=== PATIENT | male | born 1965 | race Caucasian/White ===

== ENCOUNTER 2019-11-28 03:15 | Inpatient (IN) | payer MEDICAID, SELFPAY ==
[~2019-11-28] VITALS: Ht 188 cm; Wt 72.6 kg
[~2019-11-28 03:15] MED LIST: PHEN100C3 PO
[2019-11-28 03:20] VITALS: BP 184/124
--- NOTE | 2019-11-28 03:23 | NUR ---
PT TAKEN TO BED 11 VIA WHEELCHAIR.
[2019-11-28] MEDS ORDERED: ENALAPRILAT 2.5 MG/2 ML VIAL IVP ONE (03:25)
[2019-11-28] MEDS ORDERED: ASPIRIN 325 MG TAB PO ONE (03:25)
[2019-11-28] MEDS ORDERED: NITROGLYCERIN 2% 1 GM PKT TP ONE (03:25)
[2019-11-28] MEDS ORDERED: MORPHINE SULFATE 4 MG/ML SYR IVP ONE (03:25)
--- NOTE | 2019-11-28 04:45 | NUR ---
PT IS SLEEPING VSS, R/R EQUAL, AND UNLABORED. MADE AWARE.
--- NOTE | 2019-11-28 05:50 | NUR ---
54 Y/O MALE PRESENTS TO ER WITH C/O MIDSTERNAL CHEST PAIN 01/07. X 30 MIN AGO. PT ADMITTED TO USING "NICKEL OF HEROIN" BEFORE COMING INTO ER. IV DRUG USER. PT ALSO STATES HE IS USING METHADONE WELL. PT IS HOMELESS. R/R EQUAL, MILDLY LABORED, AFEBRILE. CAP REFILL < 3 SEC. SIDE RAIL X1, BED IN LOW POSITION, WILL CONTINUE TO MONITOR. PMH: SEIZURES NKDA
--- NOTE | 2019-11-28 05:52 | NUR ---
ER NURSES HAVE ATTEMPTED TO OBTAIN A PATENT IV FROM BILATERAL ARMS. PT REFUSES TO ALLOW NURSES TO DRAW FROM ADDITIONAL SITES ON BODY. PT IS REQUESTING SMALLEST GAUGE NEEDLE, AND REQUESTING FOR IV TO BE PUT INTO VEIN THAT WAS USED PRIOR TO PRESENTING TO ER FOR HEROIN DRUG USE. OLYA MADE AWARE.
--- NOTE | 2019-11-28 05:52 | NUR ---
PT ADMINISTERED ASPIRIN 325MG PO, AND NITRO 1G MIDSTERNAL CHEST.
--- NOTE | 2019-11-28 05:56 | NUR ---
PT WILL BE ADMITTED INTO [facility], OLYA CHAHAL WILL ORDER PICC LINE PLACEMENT
[2019-11-28] MEDS ORDERED: NACL 0.9% 1,000 ML IV SCH (06:04)
[2019-11-28] MEDS ORDERED: ACETAMINOPHEN 325 MG TAB PO PRN (06:05)
[2019-11-28] MEDS ORDERED: ONDANSETRON 4 MG/2 ML VIAL IM/IVP PRN (06:05)
[2019-11-28] MEDS ORDERED: DOCUSATE SODIUM 100 MG GELCAP PO PRN (06:05)
[2019-11-28] MEDS ORDERED: lisinopriL 20 MG TAB PO ONE (06:50)
--- NOTE | 2019-11-28 07:10 | NUR ---
OBTAINED REPORT FROM MERI LINDSEY FOR CONTINUITY OF CARE
--- NOTE | 2019-11-28 07:28 | NUR ---
PT RESTING IN BED, SIDE RAIL X1
[2019-11-28 08:03] LABS: APPEARANCE,URINE CLOUDY (CLEAR); BILIRUBIN,URINE NEGATIVE (NEGATIVE); BLOOD, URINE 3+ (NEGATIVE); COLOR,URINE AMBER (YELLOW); LEUKOCYTE ESTERASE ,URINE TRACE (NEGATIVE); NITRITE, URINE POSITIVE (NEGATIVE); UGLUCOSE NEGATIVE (NEGATIVE)
[2019-11-28 08:35] LABS: RBC,URINE 50-80 /HPF (0-5); WBC,URINE TOO MANY TO COUNT /HPF (0-5)
[2019-11-28 09:11] LABS: BASOPHILS # (AUTO) 0.2 K/uL (0.00-0.22); BASOPHILS % (AUTO) 0.9 % (0.0-2.0); EOSINOPHILS # (AUTO) 0.3 K/uL (0-0.4); EOSINOPHILS % (AUTO) 1.4 % (0.0-4.0); HEMATOCRIT 41.3 % (36-52); LYMPHOCYTES # (AUTO) 1.8 K/uL (2.0-11.5); LYMPHOCYTES % (AUTO) 9.3 % (20.5-51.1); MEAN CORPUSCULAR HEMOGLOBIN 28 pg (27-31); MEAN CORPUSCULAR HGB CONC 31 g/dL (33-37); MEAN CORPUSCULAR VOLUME 87.8 fL (80-94); MONOCYTES # (AUTO) 2.6 K/uL (0.8-1.0); MONOCYTES % (AUTO) 13.6 % (1.7-9.3); NEUTROPHILS # (AUTO) 14.3 K/uL (1.8-7.7); NEUTROPHILS % (AUTO) 74.8 % (42.2-75.2); PLATELET COUNT (AUTO) 463 K/uL (140-450); RED CELL DISTRIBUTION WIDTH 14.8 % (11.6-13.7); WHITE BLOOD COUNT (AUTO) 19.1 K/uL (4.8-10.8)
--- NOTE | 2019-11-28 09:17 | NUR ---
PT RESTING IN BED, SIDE RAIL X1
[2019-11-28 09:27] LABS: BARBITURATE, URINE NEGATIVE ng/ml (NEG <=200); BENZODIAZEPINE, URINE NEGATIVE ng/mL (NEG <=200); CANNABINOID, URINE NEGATIVE ng/mL (NEG <=50); COCAINE, URINE NEGATIVE ng/mL (NEG <=300); OPIATE, URINE POSITIVE ng/mL (NEG <=2000); PHENCYCLIDINE SCREEN,URINE NEGATIVE ng/mL (NEG <=25)
[2019-11-28 10:15] VITALS: BP 137/75
--- NOTE | 2019-11-28 10:15 | NUR ---
RECEIVED PATIENT FROM ER NURSEASHLYN, FOR CONTINUITY OF CARE. PATIENT IS AWAKE AND IN BED, TOO WEAK TO AMBULATE TOWARDS BED. AAOX4, ON ROOM AIR WITH SAO2 AT 98%. PATIENT COMPLAINS OF CHEST PAIN 6/10, RADIATING TOWARDS THE BACK. WILL MEDICATE PER ORDERS. IV ON THE LAC 20G SL. RESPIRATIONS EVEN AND UNLABORED. DROPLET ISOLATIONS IN PLACE FOR R/O COVID. SAFETY PRECAUTION AND SEIZURE PRECAUTIONS IN PLACE. POC DISCUSSED AND PATIENT VERBALIZES UNDERSTANDING. CALL LIGHT WITHIN REACH. WILL CONTINUE TO MONITOR.
--- NOTE | 2019-11-28 10:20 | NUR ---
Patient will be admitted to care of [facility]. Admited to TELE. Will go to room 110B. Belongings list completed. Report to SAMMI LINDSEY.
[2019-11-28 10:26] LABS: ALBUMIN 2.6 g/dL (3.4-5.0); ANION GAP 11.4 (8-16); CARBON DIOXIDE 26.4 mmol/L (21-32); CREATININE 0.9 mg/dL (0.6-1.3); POTASSIUM 3.8 mmol/L (3.5-5.1); TOTAL BILIRUBIN 0.4 mg/dL (0.0-1.0)
--- NOTE | 2019-11-28 10:28 | NUR ---
PATIENT HAS BEEN SCREENED AND CATEGORIZED LOW NUTRITION RISK. PATIENT WILL BE SEEN WITHIN 7 DAYS OF ADMISSION. 12/05/[address]
[2019-11-28] MEDS: DEXT 5% /NACL 0.9% 1,000 ML IV SCH ×2 (10:40→22:44)
[2019-11-28] MEDS: HYDROcodone/APAP 7.5/325 MG 1 TAB PO PRN ×3 (10:49→23:25)
--- NOTE | 2019-11-28 10:49 | NUR ---
NORCO PRN GIVEN FOR CHEST PAIN 11/07. NO DISTRESS NOTED. PATIENT REFUSED SKIN CHECK, EXPLAINED RISK AND BENEFITS FOR PATIENT. PATIENT UNDERSTANDS BUT STILL REFUSES STATING THAT THEY SHOULD NOT TOUCH HIS BODY. ASSESSMENT COMPLETE. WILL CONTINUE TO MONITOR.
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
--- NOTE | 2019-11-28 11:46 | NUR ---
ROOFER NOTE: LESTER CONTACTED ROSALIA CARTY TO SPEAK TO LESTER. PER CARLOZ, PATIENT REFUSED TO SPEAK TO LESTER. SW WILL FOLLOW UP.
--- NOTE | 2019-11-28 12:10 | NUR ---
PATIENT IS ASLEEP AND IN BED, V/S TAKEN AND IS WNL. WILL CONTINUE TO MONITOR.
[2019-11-28] MEDS ORDERED: LORazepam 2 MG/ML VIAL IM/IVP PRN (13:50)
[2019-11-28] MEDS ORDERED: NITROGLYCERIN 0.4 MG TAB SL PRN (13:55)
[2019-11-28] MEDS ORDERED: hydrALAZINE 20 MG/ML VIAL IVP PRN (14:10)
[2019-11-28] MEDS ORDERED: VANCOMYCIN PER PHARMACY MC PRN (14:15)
[2019-11-28 16:00] VITALS: BP 131/80
--- NOTE | 2019-11-28 17:20 | NUR ---
PICC LINE NURSE BY THE BEDSIDE, PLACED A MIDLINE DOUBLE LUMEN ON THE RIGHT UPPER ARM. D5NS IVF RUNNING AT 60ML/HR. WILL START ROCEPHIN ABX. WILL CONTINUE TO MONITOR.
[2019-11-28] MEDS ORDERED: PIPERACILLIN/TAZOBACTAM 3.375 GM in DEXTROSE 5% 50 ML IV SCH (18:00)
--- NOTE | 2019-11-28 18:00 | NUR ---
PATIENT COMPLAINS OF CHEST PAIN 11/07. WILL MEDICATE.
--- NOTE | 2019-11-28 18:15 | NUR ---
RECEIVED PATIENT FROM ER NURSEASHLYN, FOR CONTINUITY OF CARE. PATIENT IN BED, AWAKE, HARD OF HEARING, AAOX4. NO SIGNS OF DISTRESS NOTED. ON ROOM AIR. SAFETY PRECAUTIONS IN PLACE, DROPLET ISOLATION FOR R/O COVID-19. PLAN OF CARE DISCUSSED. CALL LIGHT WITHIN REACH. WILL CONTINUE TO MONITOR. Addendum: 11/28/19 at 1922 by Chante Recio RN WRONG PATIENT
--- NOTE | 2019-11-28 19:10 | NUR ---
ENDORSED TO ANCILLARY SERVICES MANAGER THERAPY RNJOSEPH, FOR CONTINUITY OF CARE.
--- NOTE | 2019-11-28 19:11 | NUR ---
RECEIVED BEDSIDE PATIENT FROM DAY SHIFT NURSESAMMI FOR CONTINUITY OF CARE. PATIENT IS AWAKE AND IN BED, TOO WEAK TO AMBULATE TOWARDS BED. AAOX4, BREATHING EVEN AND UNLABORED ON ROOM AIR. MIDLINE ON ROXANA, PATENT, INTACT AND ASYMPTOMATIC. DROPLET ISOLATIONS IN PLACE FOR R/O COVID. SAFETY PRECAUTION AND SEIZURE PRECAUTIONS IN PLACE. POC DISCUSSED AND PATIENT VERBALIZES UNDERSTANDING. CALL LIGHT WITHIN REACH. WILL CONTINUE TO MONITOR.
[2019-11-28] MEDS: VANCOMYCIN 1,000 MG in DEXTROSE 5% 250 ML IV SCH (19:14)
--- NOTE | 2019-11-28 19:20 | NUR ---
ENDORSED TO PIPEMAN RN, REGAN, FOR CONTINUITY OF CARE.
[2019-11-28 19:41] LABS: FREE T4 (FREE THYROXINE) 1.46 ng/dL (0.76-1.46); MAGNESIUM 1.9 mg/dL (1.8-2.4); PHOSPHORUS 3.2 mg/dL (2.5-4.9); THYROID STIMULATING HORMONE 0.93 uIU/mL (0.34-3.74)
[2019-11-28 19:53] LABS: PHENOBARBITAL < 1 ug/ml (15-40)
[2019-11-28 20:00] VITALS: BP 158/77
[2019-11-28] MEDS: METOPROLOL 25 MG TAB PO SCH (20:22)
--- NOTE | 2019-11-28 20:23 | NUR ---
GIVEN METOPROLOL AND HEPARIN MD ORDERED. PT TOLERATED WELL. Addendum: 11/29/19 at 0023 by Tala Pinzon RN GIVEN METOPROLOL. PATIENT REFUSED HEPARIN. EXPLAINED BENEFIT AND RISK 3X, PT STILL REFUSED AND STATED "I DO NOT WANT ANY NEEDLE TO MY BODY."
--- NOTE | 2019-11-28 21:30 | NUR ---
PT C/O CHEST PAIN, GIVEN NITROSTAT MD ORDERED. PT TOLERATED WELL.
--- NOTE | 2019-11-28 21:36 | NUR ---
REASSESSED CHEST PAIN, PT STATED "I AM OK NOW." WILL CONTINUE TO MONITOR.
[2019-11-28 22:20] LABS: CREATINE KINASE MB 0.6 ng/mL (0-3.6)
--- NOTE | 2019-11-28 23:25 | NUR ---
PT C/O 6 CHEST PAIN, GIVEN NORCO MD ORDERED. PT TOLERATED WELL.
[2019-11-29] VITALS: BP 146/95
--- NOTE | 2019-11-29 00:01 | NUR ---
VS WITHIN PT'S BASELINE. WILL CONTINUE TO MONITOR.
--- NOTE | 2019-11-29 02:35 | NUR ---
PT SLEEPING IN BED COMFORTABLY. NO ACUTE DISTRESS NOTED.
[2019-11-29] MEDS: VANCOMYCIN 1,000 MG in DEXTROSE 5% 250 ML IV SCH ×2 (03:24→15:00)
[2019-11-29 04:00] VITALS: BP 158/96
[2019-11-29] MEDS: HYDROcodone/APAP 7.5/325 MG 1 TAB PO PRN (05:37)
--- NOTE | 2019-11-29 05:37 | NUR ---
PT C/O CHEST PAIN 11/07, GIVEN NORCO MD ORDERED. PT TOLERATED WELL.
--- NOTE | 2019-11-29 07:01 | NUR ---
PT IN STABLE CONDITION. WILL ENDORSE PT TO DAY SHIFT NURSE FOR CONTINUOUS CARE.
--- NOTE | 2019-11-29 07:10 | NUR ---
RECEIVED REPORT FROM SECURITY OPERATIONS ENGINEER NURSE. PT IS IN BED. AOX4, NO C/O PAIN, NO SOB, RESPIRATIONS ARE EVEN AND UNLABORED. ON ROOM AIR. SKIM IS INTACT. WITH RIGHT UPPER ARM MIDLINE RUNNING NS AT 60CC/HR. SAFETY PRECAUTIONS IN PLACE. ISOLATION PRECAUTION OBSERVED. CALL LIGHT WITHIN REACH. WILL CONTINUE TO MONITOR.
[2019-11-29 07:14] LABS: BASOPHILS # (AUTO) 0.2 K/uL (0.00-0.22); BASOPHILS % (AUTO) 0.9 % (0.0-2.0); EOSINOPHILS % (AUTO) 0.1 % (0.0-4.0); HEMATOCRIT 40.6 % (36-52); HEMOGLOBIN 13.2 g/dL (12.0-18.0); LYMPHOCYTES # (AUTO) 1.6 K/uL (2.0-11.5); LYMPHOCYTES % (AUTO) 7.9 % (20.5-51.1); MEAN CORPUSCULAR HEMOGLOBIN 28 pg (27-31); MEAN CORPUSCULAR HGB CONC 33 g/dL (33-37); MEAN CORPUSCULAR VOLUME 84.8 fL (80-94); MONOCYTES # (AUTO) 1.3 K/uL (0.8-1.0); MONOCYTES % (AUTO) 6.4 % (1.7-9.3); NEUTROPHILS # (AUTO) 17.1 K/uL (1.8-7.7); NEUTROPHILS % (AUTO) 84.7 % (42.2-75.2); PLATELET COUNT (AUTO) 554 K/uL (140-450); RED BLOOD CELL COUNT(AUTO) 4.78 MIL/uL (4.20-6.10); RED CELL DISTRIBUTION WIDTH 13.9 % (11.6-13.7); WHITE BLOOD COUNT (AUTO) 20.2 K/uL (4.8-10.8)
[2019-11-29 07:41] LABS: ANION GAP 11.4 (8-16); CARBON DIOXIDE 28.1 mmol/L (21-32); CREATININE 0.8 mg/dL (0.6-1.3); POTASSIUM 3.5 mmol/L (3.5-5.1)
[2019-11-29 07:44] LABS: CHOL/HDL RATIO 2.3 (1-4.5)
[2019-11-29 08:00] VITALS: BP 134/93
--- NOTE | 2019-11-29 08:30 | NUR ---
WITH C/O CHEST PAIN NITRO GIVEN SL ORDERED. OTHER DUE MEDS GIVEN
--- NOTE | 2019-11-29 08:45 | NUR ---
NO FURTHER C/O CHEST PAIN
[2019-11-29] MEDS ORDERED: ATORVASTATIN 20 MG TAB PO SCH (09:00)
[2019-11-29] MEDS ORDERED: lisinopriL 5 MG TAB PO SCH (09:00)
[2019-11-29] MEDS: METOPROLOL 25 MG TAB PO SCH (09:48)
[2019-11-29] MEDS: ASPIRIN 81 MG TAB.CHEW PO SCH (09:48)
--- NOTE | 2019-11-29 11:15 | NUR ---
PT ASLEEP IN BED. NO C/O AT THIS TIME
--- NOTE | 2019-11-29 11:30 | NUR ---
COVID RESULT IS NEGATIVE. AWARE. DISCONTINUED ISOLATION
[2019-11-29 12:00] VITALS: BP 142/81
--- NOTE | 2019-11-29 13:00 | NUR ---
PT IN BED EATING LUNCH NO COMPLAINTS AT THIS TIME
[2019-11-29] MEDS ORDERED: CLONIDINE HYDROCHLORIDE 0.1 MG TAB PO PRN (15:50)
[2019-11-29 16:00] VITALS: BP 136/90
[2019-11-29] MEDS: HYDROcodone/APAP 10/325 MG 1 TAB TAB PO PRN ×2 (16:22→21:30)
[2019-11-29] MEDS: NACL 0.9% 1,000 ML IV SCH (16:22)
--- NOTE | 2019-11-29 16:41 | NUR ---
WITH C/O NAUSEA AND RESTLESSNESS. NORCO 10/325 GIVEN FOR WITHDRAWALS
--- NOTE | 2019-11-29 18:50 | NUR ---
PT IN STABLE CONDITION. WILL ENDORSE TO NEXT SHIFT.
--- NOTE | 2019-11-29 19:30 | NUR ---
RECEIVED AAOX4 , NID - O2 SAT WNL , ON RA . IV SITE INTACT AND PATENT . ON TELE MONITOR - SR . W/ HX OF S2 - ON S2 PRECAUTION . PER PT - BEARABLE PAIN - JUST MEDICATED SAFETY MEASURES IN PLACE - CALL LIGHT / URINAL WITHIN REACH . PLAN OF CARE DISCUSSED VERBALIZE FAIR UNDERSTANDING - NEEDS REINFORCEMENT . WILL CONT. TO MONITOR .
[2019-11-29 20:00] VITALS: BP 150/65
--- NOTE | 2019-11-29 21:22 | NUR ---
MADE ROUNDS , PT GRIMACING , IRRITABLE , HE SAID HE HAS PAIN IN DIFFERENT BODY PARTS - REQUESTING PAIN RELIEVER - WILL GIVE NARCO ORDERED . WILL CONT. TO MONITOR.
[2019-11-30] VITALS: BP 140/60
[2019-11-30] MEDS ORDERED: VANCOMYCIN 1,000 MG in DEXTROSE 5% 250 ML IV SCH ×2
--- NOTE | 2019-11-30 | NUR ---
REFUSED CAROLA MILLER - HE SAID - DON'T BOTHER ME -I'M SLEEPING - WILL INFORM MARY ANN ABOUT THE REFUSAL .
--- NOTE | 2019-11-30 01:40 | NUR ---
MADE ROUNDS . HE SAID HE CHANGED HIS MIND AND AGREE TO ADMINISTER THE ANTIBIOTIC ( VANCOCIN) WILL INFORM THE PHARMACY TO CHANGE THE SCHEDULE . Addendum: 11/30/19 at 0241 by Lazara Guevara RN THE PHARMACIST ON DUTY INFORMED THAT THE VANCO TIV GIVEN AT 0159 INSTEAD OF 0000 - SHE WILL REVISED THE SCHEDULE OF VANCO . Addendum: 11/30/19 at 0245 by Lazara Guevara RN THE PHARMACIST CHANGED THE SCHEDULE OF VANCO - SHE PUT THE 2AM - I DOCUMENTED IT NON ADMINISTERED BECAUSE ON THAT TIME THE VANCO /TIV IS ON GOING - IT ADMINISTERED AT 0159 -THE 2AM IS JUST THE DUPLICATE OF 0159 - WILL ENDORSE IT TO AM SHIFT
[2019-11-30] MEDS: VANCOMYCIN 1,000 MG in DEXTROSE 5% 250 ML IV SCH ×2 (02:00→10:52)
[2019-11-30 04:00] VITALS: BP 128/70
--- NOTE | 2019-11-30 04:00 | NUR ---
MADE ROUNDS , NO S/SX OF ACUTE DISTRESS NOTED AT THIS TIME - BP WNL . WILL CONT . TO MONITOR . O2 SAT WNL. ON TELE MONITOR - SR.
[2019-11-30] MEDS: NACL 0.9% 1,000 ML IV SCH (05:48)
--- NOTE | 2019-11-30 06:00 | NUR ---
C/O BACK PAIN - TELE MONITOR - SR - WILL MEDICATE ORDERED . WILL CONT. TO MONITOR . O2 SAT WNL .
[2019-11-30] MEDS: HYDROcodone/APAP 7.5/325 MG 1 TAB PO PRN (06:41)
--- NOTE | 2019-11-30 07:31 | NUR ---
ENDORSED TO AM SHIFT - PT - STABLE .
[2019-11-30 07:33] LABS: BASOPHILS # (AUTO) 0.1 K/uL (0.00-0.22); BASOPHILS % (AUTO) 0.5 % (0.0-2.0); EOSINOPHILS # (AUTO) 0.2 K/uL (0-0.4); EOSINOPHILS % (AUTO) 1.1 % (0.0-4.0); HEMATOCRIT 40.4 % (36-52); HEMOGLOBIN 13.2 g/dL (12.0-18.0); LYMPHOCYTES % (AUTO) 12.3 % (20.5-51.1); MEAN CORPUSCULAR HEMOGLOBIN 28 pg (27-31); MEAN CORPUSCULAR HGB CONC 33 g/dL (33-37); MEAN CORPUSCULAR VOLUME 84.7 fL (80-94); MONOCYTES # (AUTO) 1.1 K/uL (0.8-1.0); MONOCYTES % (AUTO) 6.8 % (1.7-9.3); NEUTROPHILS # (AUTO) 12.9 K/uL (1.8-7.7); NEUTROPHILS % (AUTO) 79.3 % (42.2-75.2); PLATELET COUNT (AUTO) 577 K/uL (140-450); RED BLOOD CELL COUNT(AUTO) 4.77 MIL/uL (4.20-6.10); RED CELL DISTRIBUTION WIDTH 14.1 % (11.6-13.7); WHITE BLOOD COUNT (AUTO) 16.2 K/uL (4.8-10.8)
[2019-11-30 07:50] LABS: ANION GAP 11.6 (8-16); CARBON DIOXIDE 28.8 mmol/L (21-32); CREATININE 0.9 mg/dL (0.6-1.3); POTASSIUM 3.4 mmol/L (3.5-5.1)
[2019-11-30 07:54] LABS: MAGNESIUM 1.9 mg/dL (1.8-2.4); PHOSPHORUS 2.7 mg/dL (2.5-4.9)
[2019-11-30 08:00] VITALS: BP 135/82
[2019-11-30] MEDS ORDERED: METHADONE 10 MG TAB PO SCH (09:00)
[2019-11-30] MEDS: ASPIRIN 81 MG TAB.CHEW PO SCH (09:10)
--- NOTE | 2019-11-30 09:17 | NUR ---
ADMINISTERED SCHEDULED MEDICATION, MEDICATION EDUCATION GIVEN, PT TOLERATED WELL, PT IS STABLE, CALL LIGHT WITHIN REACH.
--- NOTE | 2019-11-30 10:56 | NUR ---
ADMINISTERED SCHEDULED MEDICATION, MEDICATION EDUCATION GIVEN, PT VERBALIZED UNDERSTANDING, PT TOLERATED MEDICATION WELL, PT IS STABLE, CALL LIGHT WITHIN REACH.
[2019-11-30] MEDS ORDERED: SULF-58 PO (11:09)
--- NOTE | 2019-11-30 12:58 | NUR ---
PT REMOVED HIS CARDIAC SOUP PERSON, WALKED INTO THE PT ROOM AND PT WAS PULLING PICC LINE OUT. TOLD PT TO STOP AND UNDERSTOOD HE WAS LEAVING AMA BUT HE NEEDED TO BE PATIENT AND LET NURSING REMOVE PICC LINE. PT STOP ASKED TO LEAVE AMA. PREVIOUS DR HARPER SPOKE WITH PT ABOUT LEAVING AMA AND THE RISK AND BENEFITS. PT ASKED TO SIGNS AMA FORM TO LEAVE TO GET TO HIS "HONEY". PICC LINE REMOVED, PT SIGNED AMA FORM, PT WHEELED OUT TO THE FRONT LOBBY, PT WALKED OUT OF THE HOSPITAL WITH STEADY GAIT, PT WAS STABLE,
--- NOTE | 2019-11-30 19:05 | NUR ---
RECEIVED REPORT FROM NIGHT NURSE FOR CONTINUITY OF CARE, PT IS STABLE, PT IS ASLEEP, PT HAS ROXANA PICC LINE INFUSING NORMAL SALINE AT 70 ML/H, PT IS A FALL RISK, BED IN LOW POSITION, SAFETY MEASURES IN PLACE, WILL INTRODUCE SELF ONCE PT WAKES UP AND UPDATE WHITEBOARD, CALL LIGHT WITHIN REACH.
[2019-12-01 15:20] LABS: T4 (THYROXINE) 11.5 ug/dL (4.5-12.0)
== END 2019-11-30 12:55 | disposition left against medical advice (07) | DRG 720 ==
LOC: MED 03:15 → MTU 06:07 → EEVIPCON 06:07 → MTU 09:42
PROVIDERS: ADMIT General Practice; ATTEND General Practice
PROC: 05HY33Z Insertion of Infusion Device into Upper Vein, Percutaneous Approach (ICD-10-PCS; principal; 2019-11-28)
DX: A41.9 Sepsis, unspecified organism (principal); E43 Unspecified severe protein-calorie malnutrition; M94.0 Chondrocostal junction syndrome [Tietze]; L03.114 Cellulitis of left upper limb; L03.113 Cellulitis of right upper limb; N39.0 Urinary tract infection, site not specified; Z68.20 Body mass index [BMI] 20.0-20.9, adult; Z20.828 Contact with and (suspected) exposure to other viral communicable diseases; I10 Essential (primary) hypertension; K21.9 Gastro-esophageal reflux disease without esophagitis; G40.909 Epilepsy, unspecified, not intractable, without status epilepticus; G35 Multiple sclerosis; Z71.51 Drug abuse counseling and surveillance of drug abuser; E87.1 Hypo-osmolality and hyponatremia; Z91.14 Patient's other noncompliance with medication regimen; Z53.29 Procedure and treatment not carried out because of patient's decision for other reasons; F15.93 Other stimulant use, unspecified with withdrawal
CPT/HCPCS: 36415; 71045; 80048; 80053; 80184; 80185; 80202; 80305; 81001; 82150; 82550; 82553; 83036; 83605; 83690; 83735; 83880; 84100; 84436; 84439; 84443; 84479; 84484; 85025; 85610; 85730; 87040; 87081; 87086; 87186; 93005; 93970; 99291; C1751; J0696; J1644; J2543; J3370; J7030; J7042; J7060; Q0092; U0003-CS